=== PATIENT | female | born 1940 | race Caucasian/White ===

== ENCOUNTER 2020-07-03 22:28 | Inpatient (IN) | payer MEDICARE ==
[~2020-07-03] VITALS: Ht 165 cm; Wt 51.3 kg
--- NOTE | 2020-07-03 22:46 | ED Respiratory ---
General Stated Complaint: COVID +/LOW O2/WEAKNESS Source: patient History of Present Illness Date Seen by Provider: Jul 03, 2020 Time Seen by Provider: 22:43 Initial Comments PT ARRIVES VIA POV FROM HOME PT IS COVID-19 POSITIVE STATES ON Monday06/29/20, SHE BEGAN TO HAVE FATIGUE, SOME MILD NAUSEA AND VOMITED X 1, AND HAD A LITTLE DIARRHEA. ALSO LOST TASTE AND SMELL. HAD BODY ACHES ONE DAY. WAS TESTED ON MONDAY FOR COVID-19 WITH POSITIVE RESULT BACK ON MONDAY. JUST GOT A HOME O2 SAT MONITOR TODAY--O2 SAT WAS 94% EARLIER IN THE DAY, AND TONIGHT IT WAS 87%, SO CAME HERE. NO SHORTNESS OF BREATH AT ANY TIME NO COUGH AT ANY TIME C/O BEING WEAK NO CHEST PAIN NO ABDOMINAL PAIN NO SORE THROAT NO HEADACHE NO LONGER HAS NAUSEA OR DIARRHEA STATES SHE DID NOT EAT FOR 3-4 DAYS DUE TO NO APPETITE, BUT HAS BEEN DRINKING ALOT--STATES HER MOUTH FEELS VERY DRY STATES SHE IS URINATING A NORMAL AMOUNT AND NO URINARY SYMPTOMS MULTIPLE PEOPLE AT HER BUDDHIST HAVE TESTED POSITIVE, AND DAUGHTER TESTED POSITIVE LAST WEEK PT LIVES ALONE, BUT HAS BEEN AROUND MULTIPLE FAMILY MEMBERS PT HAS HISTORY OF HTN, AND TAKES A BLOOD PRESSURE MEDICATION AND BABY ASPIRIN, OTHERWISE DOES NOT TAKE ANY OTHER MEDICATIONS OR HAVE ANY OTHER MEDICAL PROBLEMS HAS NOT TAKEN HER MEDICATIONS TODAY--TAKES THEM IN THE EVENING. Allergies and Home Medications Allergies Coded Allergies: No Known Drug Allergies (Unverified , 07/03/20) Patient Home Medication List Home Medication List Reviewed: Yes Review of Systems Review of Systems Constitutional: see HPI; No chills, No diaphoresis, No fever; malaise, weakness EENTM: see HPI; No nose congestion, No throat pain Respiratory: see HPI; No cough, No dyspnea on exertion, No short of breath, No wheezing Cardiovascular: no symptoms reported; No chest pain, No edema, No palpitations, No syncope Gastrointestinal: see HPI; No abdominal pain; diarrhea, loss of appetite, nausea, vomiting Genitourinary: no symptoms reported Musculoskeletal: see HPI Skin: no symptoms reported Psychiatric/Neurological: No Symptoms Reported; Denies Headache Hematologic/Lymphatic: No Symptoms Reported Immunological/Allergic: no symptoms reported Past Epgyqke-Xnpktc-Lqfwmi Hx Past Med/Social Hx: Reviewed and Corrections made Patient Social History Alcohol Use: Denies Use Recreational Drug Use: No Smoking Status: Never a Smoker Recent Foreign Travel: No Contact w/Someone Who Travel: No Past Medical History Surgeries: No Respiratory: No Cardiac: Yes Hypertension 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 oz. kg; BMI Method: General Appearance: WD/WN, no apparent distress, thin, other (DOES NOT APPEAR ILL OR TO BE IN ANY DISCOMFORT OR DISTRESS. ) HEENT: PERRL/EOMI, normal ENT inspection, TMs normal, pharynx normal Neck: non-tender, full range of motion, supple Respiratory: normal breath sounds, no respiratory distress, no accessory muscle use Cardiovascular: normal peripheral pulses, regular rate, rhythm, no edema, no JVD, no murmur Gastrointestinal: non tender, soft Extremities: normal inspection, normal capillary refill Neurologic/Psychiatric: auto wheel alignment specialist II-XII nml as tested, no motor/sensory deficits, alert, normal mood/affect, oriented x 3 Skin: normal color, warm/dry KYPOHSIS Focused Exam Lactate Level 07/03/20 22:55: Lactic Acid Level 1.33 Lactic Acid Level Laboratory Tests Test 07/03/20 22:55 Lactic Acid Level 1.33 MMOL/L (0.50-2.00) Progress/Results/Core Measures Suspected Sepsis SIRS Temperature: Pulse: Respiratory Rate: Laboratory Tests 07/03/20 22:55: White Blood Count 5.1 Blood Pressure / Mean: 07/03/20 22:55: Lactic Acid Level 1.33 Laboratory Tests 07/03/20 22:55: Creatinine 0.69, INR Comment 0.9, Platelet Count 271, Total Bilirubin 0.4 Results/Orders Lab Results Laboratory Tests Test 07/03/20 22:50 07/03/20 22:55 Range/Units Urine Color YELLOW Urine Clarity CLEAR Urine pH 7.0 5-9 Urine Specific [place] 1.015 L 1.016-1.022 Urine Protein NEGATIVE NEGATIVE Urine Glucose (UA) NEGATIVE NEGATIVE Urine Ketones TRACE H NEGATIVE Urine Nitrite NEGATIVE NEGATIVE Urine Bilirubin NEGATIVE NEGATIVE Urine Urobilinogen 0.2 < = 1.0 MG/DL Urine Leukocyte Esterase 1+ H NEGATIVE Urine RBC (Auto) NEGATIVE NEGATIVE Urine RBC NONE /HPF Urine WBC 5-10 H /HPF Urine Squamous Epithelial Cells 5-10 /HPF Urine Crystals NONE /LPF Urine Bacteria FEW H /HPF Urine Casts NONE /LPF Urine Mucus NEGATIVE /LPF Urine Culture Indicated YES White Blood Count 5.1 4.3-11.0 10^3/uL Red Blood Count 4.25 3.80-5.11 10^6/uL Hemoglobin 12.8 11.5-16.0 g/dL Hematocrit 39 35-52 % Mean Corpuscular Volume 91 80-99 fL Mean Corpuscular Hemoglobin 30 25-34 pg Mean Corpuscular Hemoglobin Concent 33 32-36 g/dL Red Cell Distribution Width 13.0 10.0-14.5 % Platelet Count 271 130-400 10^3/uL Mean Platelet Volume 9.5 9.0-12.2 fL Immature Granulocyte % (Auto) 1 % Neutrophils (%) (Auto) 65 42-75 % Lymphocytes (%) (Auto) 25 12-44 % Monocytes (%) (Auto) 9 0-12 % Eosinophils (%) (Auto) 1 0-10 % Basophils (%) (Auto) 0 0-10 % Neutrophils # (Auto) 3.3 1.8-7.8 10^3/uL Lymphocytes # (Auto) 1.3 1.0-4.0 10^3/uL Monocytes # (Auto) 0.5 0.0-1.0 10^3/uL Eosinophils # (Auto) 0.0 0.0-0.3 10^3/uL Basophils # (Auto) 0.0 0.0-0.1 10^3/uL Immature Granulocyte # (Auto) 0.0 0.0-0.1 10^3/uL Erythrocyte Sedimentation Rate 24 0-30 MM/HR Prothrombin Time 12.4 12.2-14.7 SEC INR Comment 0.9 0.8-1.4 Activated Partial Thromboplast Time 29 24-35 SEC Sodium Level 138 135-145 MMOL/L Potassium Level 3.5 L 3.6-5.0 MMOL/L Chloride Level 100 98-107 MMOL/L Carbon Dioxide Level 26 21-32 MMOL/L Anion Gap 12 5-14 MMOL/L Blood Urea Nitrogen 11 7-18 MG/DL Creatinine 0.69 0.60-1.30 MG/DL Estimat Glomerular Filtration Rate > 60 BUN/Creatinine Ratio 16 Glucose Level 101 70-105 MG/DL Lactic Acid Level 1.33 0.50-2.00 MMOL/L Calcium Level 8.5 8.5-10.1 MG/DL Corrected Calcium 8.6 8.5-10.1 MG/DL Magnesium Level 1.8 1.6-2.4 MG/DL Total Bilirubin 0.4 0.1-1.0 MG/DL Aspartate Amino Transf (AST/SGOT) 25 5-34 U/L Alanine Aminotransferase (ALT/SGPT) 14 0-55 U/L Alkaline Phosphatase 73 40-136 U/L Total Creatine Kinase 52 29-168 U/L Creatine Kinase MB 1.1 <6.6 NG/ML Myoglobin 31.5 10.0-92.0 NG/ML Troponin I < 0.028 <0.028 NG/ML B-Type Natriuretic Peptide 15.2 <100.0 PG/ML Total Protein 6.7 6.4-8.2 GM/DL Albumin 3.9 3.2-4.5 GM/DL Procalcitonin 0.04 <0.10 NG/ML My Orders Orders - GEENA TAYLOR DO Ed Iv/Invasive Line Start (07/03/20:) Ekg Tracing (07/03/20:) O2 (07/03/20:) Monitor-Rhythm Ecg Trace Only (07/03/20:) Chest 1 View, Ap/Pa Only (07/03/20:) BNP (07/03/20:) Cbc With Automated Diff (07/03/20:) Comprehensive Metabolic Panel (07/03/20:) Creatine Kinase (07/03/20:) Creatine Kinase Mb (07/03/20:) Erythrocyte Sedimentation Rate (07/03/20:) Lactic Acid Analyzer (07/03/20:) Magnesium (07/03/20:) Procalcitonin (Pct) (07/03/20:) Protime With Inr (07/03/20:) Partial Thromboplastin Time (07/03/20:) Ua Culture If Indicated (07/03/20:) Blood Culture (10/16/20 22:31) Myoglobin Serum (07/03/20 22:31) Troponin I (07/03/20 22:31) Ed Iv/Invasive Line Start (07/03/20 22:31) Urine Culture (07/03/20 22:50) Ceftriaxone For Iv Use (Rocephin For I (07/03/20 23:30) Azithromycin Injection (Zithromax Inject (07/03/20 23:30) Ct Angio Chest W (07/03/20 23:33) Water (Sterile) For Injection (Sterile W (07/03/20 23:42) Ns (Ivpb) (Sodium Chloride 0.9%) (07/03/20 23:43) Ceftriaxone For Iv Use (Rocephin For I (07/03/20 23:43) Azithromycin Injection (Zithromax Inject (07/03/20 23:43) Medications Given in ED Current Medications Medications Dose Ordered Sig/Mushtaq Route Start Time Stop Time Status Last Admin Dose Admin Azithromycin 500 mg/Sodium Chloride 255 ml @ 250 mls/hr ONCE ONCE IV 07/03/20 23:30 07/04/20 00:31 DC 07/03/20 23:48 250 MLS/HR Ceftriaxone Sodium 1000 mg/ Sterile Water 10 ml @ 200 mls/hr ONCE ONCE IV 07/03/20 23:30 07/03/20 23:42 DC 07/03/20 23:48 200 MLS/HR Vital Signs/I&O 07/03/20 07/03/20 22:49 22:49 Temp 36.9 Pulse 84 Resp 18 B/P (MAP) 169/107 (127) Pulse Ox 96 96 O2 Delivery Nasal Cannula Nasal Cannula O2 Flow Rate 2.00 2.00 07/04/20 00:00 Intake Total 10 ml Balance 10 ml Capillary Refill : Progress Note : Progress Note O2 SAT 88% ON ROOM AIR ON ARRIVAL, UP TO 97-98% ON O2 AT 2L/NC NO COUGH OR DYSPNEA OR ANY RESPIRATORY SYMPTOMS OF ANY KIND NO FEVER NO GI SYMPTOMS UNEVENTFUL ER STAY ECG Initial ECG Impression Date: Jul 03, 2020 Initial ECG Impression Time: 23:01 Initial ECG Rate: 86 Initial ECG Rhythm: Normal Sinus (PVC) Initial ECG Comparisson: No Previous ECG Available Diagnostic Imaging Comments CXR--RIGHT SIDED INFILTRATE, PENDING RADIOLOGIST REVIEW CT CHEST ANGIOGRAM--NO P.E., PATCHY BILATERAL AIRSPACE GROUND-GLASS OPACITIES RUL, WEN, RML, CANNOT EXCLUDE PNEUMONIA, VIRAL PNEUMONIA. SMALL BILATERAL PLEURAL EFFUSIONS. MULTIPLE T-SPINE COMPRESSION FRACTURES-CHRONIC APPEARING. PER [facility] VIA FAX AT [phone] Reviewed: Reviewed by Me Departure Communication (Admissions) 39--ATTEMPTING TO CONTACT DR. JARAMILLO, HOSPITALIST COVERING COVID-19 PATIENTS, MESSAGE LEFT 44--SPOKE WITH DR. JARAMILLO, HOSPITALIST, ACCEPTS PT FOR ADMIT 49--SPOKE WITH DR. KOCH, PT'S [id number] AND HER PCP AND UPDATED HER ON PT'S CONDITION. Impression Primary Impression: Pneumonia due to COVID-19 virus Additional Impressions: UTI (urinary tract infection) Hypoxia Disposition: ADMITTED INPATIENT Condition: Stable Admissions Decision to Admit Reason: Admit from ER (General) Decision to Admit/Date: Jul 04, 2020 Time/Decision to Admit Time: 00:45 GEENA TAYLOR DO Jul 03, 2020 22:46
[2020-07-03 23:13] LABS: BASOPHILS % (AUTO) 0 % (0-10); EOSINOPHILS % (AUTO) 1 % (0-10); HEMATOCRIT 39 % (35-52); HEMOGLOBIN 12.8 g/dL (11.5-16.0); LYMPHOCYTES # (AUTO) 1.3 10^3/uL (1.0-4.0); LYMPHOCYTES % (AUTO) 25 % (12-44); MEAN CORPUSCULAR HEMOGLOBIN 30 pg (25-34); MEAN CORPUSCULAR HGB CONC 33 g/dL (32-36); MEAN CORPUSCULAR VOLUME 91 fL (80-99); MEAN PLATELET VOLUME 9.5 fL (9.0-12.2); MONOCYTES # (AUTO) 0.5 10^3/uL (0.0-1.0); MONOCYTES % (AUTO) 9 % (0-12); NEUTROPHILS # (AUTO) 3.3 10^3/uL (1.8-7.8); NEUTROPHILS % (AUTO) 65 % (42-75); PLATELET COUNT 271 10^3/uL (130-400); WHITE BLOOD COUNT 5.1 10^3/uL (4.3-11.0)
[2020-07-03] MEDS ORDERED: AMLO10TA7 PO (23:13)
[2020-07-03] MEDS ORDERED: ASPI-999 PO (23:13)
[2020-07-03 23:14] LABS: BILIRUBIN,URINE NEGATIVE (NEGATIVE); CLARITY,URINE CLEAR; COLOR,URINE YELLOW; GLUCOSE, URINE (UA) NEGATIVE (NEGATIVE); KETONES,URINE TRACE (NEGATIVE); LEUKOCYTE ESTERASE ,URINE 1+ (NEGATIVE); NITRITE,URINE NEGATIVE (NEGATIVE); PROTEIN,URINE NEGATIVE (NEGATIVE)
[2020-07-03 23:22] LABS: INR 0.9 (0.8-1.4); PROTHROMBIN TIME PATIENT 12.4 SEC (12.2-14.7)
[2020-07-03 23:23] LABS: BACTERIA,URINE FEW /HPF
[2020-07-03 23:24] LABS: ALBUMIN 3.9 GM/DL (3.2-4.5); CHLORIDE 100 MMOL/L (98-107); POTASSIUM 3.5 MMOL/L (3.6-5.0); SODIUM 138 MMOL/L (135-145)
[2020-07-03 23:25] LABS: CALCIUM 8.5 MG/DL (8.5-10.1)
[2020-07-03 23:26] LABS: GLUCOSE 101 MG/DL (70-105)
[2020-07-03 23:27] LABS: TOTAL PROTEIN 6.7 GM/DL (6.4-8.2)
[2020-07-03 23:28] LABS: BILIRUBIN,TOTAL 0.4 MG/DL (0.1-1.0); CARBON DIOXIDE 26 MMOL/L (21-32)
[2020-07-03 23:30] LABS: ALKALINE PHOSPHATASE 73 U/L (40-136); CREATININE SERUM 0.69 MG/DL (0.60-1.30); GFR ESTIMATED > 60
[2020-07-03] MEDS ORDERED: AZITHROMYCIN INJECTION 500 MG in NS (IVPB) 250 ML IV ONE (23:30)
[2020-07-03] MEDS ORDERED: cefTRIAXone FOR IV USE 1,000 MG in WATER (STERILE) FOR INJECTION 10 ML IV ONE (23:30)
[2020-07-03 23:31] LABS: BUN/CREATININE RATIO 16; ERYTHROCYTE SEDIMENTATION RATE 24 MM/HR (0-30)
[2020-07-03 23:33] LABS: ALANINE AMINOTRANSFERASE 14 U/L (0-55)
[2020-07-03 23:34] LABS: CREATINE KINASE 52 U/L (29-168); MAGNESIUM 1.8 MG/DL (1.6-2.4)
[2020-07-03 23:42] LABS: CREATINE KINASE MB 1.1 NG/ML (<6.6)
[2020-07-03] MEDS ORDERED: WATER (STERILE) FOR INJECTION 10 ML ONE (23:42)
[2020-07-03] MEDS ORDERED: NS (IVPB) 250 ML ONE (23:43)
[2020-07-03] MEDS ORDERED: cefTRIAXone 1,000 MG IV (ROCEPHIN) VIAL ONE (23:43)
[2020-07-03] MEDS ORDERED: AZITHROMYCIN INJECTION 500 MG/5 ML VIAL ONE (23:43)
--- NOTE | 2020-07-04 00:56 | NUR ---
TELEPHONE REPORT RECEIVED FROM ALBERTINA-GAGE LARRY- AT THIS TIME.
[2020-07-04] MEDS ORDERED: ENOXAPARIN 40 MG/0.4 ML (LOVENOX) SYR SC ONE (01:00)
[2020-07-04 01:25] VITALS: BP 146/83
--- NOTE | 2020-07-04 01:25 | NUR ---
RADHA KOCH admitted to room 426-1, with an admitting diagnosis of COVID, HYPOXIA AND UTI on 07/04/20 from ER via , accompanied by STAFF.RADHA KOCH introduced to surroundings, call light, bed controls, phone, TV, temperature control, lights, meal times, smoking policy, visitor policy, side rail policy, bathrooms and showers. Patient Rights given to patient in the handbook. RADHA KOCH verbalizes understanding that [facility] is not responsible for the loss or damage to any personal effects or valuables that are kept in the patients possession during their hospitalization. RADHA KOCH verbalizes understanding of Interdisciplinary Patient Education. Patient and/or family were informed about the Rapid Response Team and its purpose.
[2020-07-04] MEDS ORDERED: D5 1/2 NS W/KCL 20 MEQ/L 1,000 ML IV ONE (01:32)
[2020-07-04] MEDS ORDERED: ACETAMINOPHEN 500 MG TAB (TYLENOL) PO PRN (02:15)
[2020-07-04] MEDS ORDERED: D5 1/2 NS W/KCL 20 MEQ/L 1,000 ML IV SCH (02:15)
[2020-07-04] MEDS ORDERED: RT-ALBUTEROL INHALER HFA (VENTOLIN HFA) 18 GM IH PRN (02:45)
[2020-07-04 03:55] VITALS: BP 122/60
--- NOTE | 2020-07-04 06:39 | Diagnostic Imaging Report ---
PROCEDURE: CT angiography of the chest with contrast. TECHNIQUE: Multiple contiguous axial images were obtained through the chest after uneventful bolus administration of intravenous contrast. 3D reconstructed CTA MIP acquisitions were also performed. Auto Exposure Controls were utilized during the CT exam to meet ALARA standards for radiation dose reduction. Indication: Dyspnea with hypoxia. Comparison: Chest x-ray same day. Discussion: No pulmonary embolus identified. The thoracic aorta is normal in caliber and configuration. Normal heart size. No pericardial fluid. Trace pleural fluid is noted bilaterally. Shotty-appearing mediastinal adenopathy. Changes of chronic lung disease are noted. Patchy groundglass infiltrates are present bilaterally, right greater than left, likely pneumonia. Recommend clinical correlation for viral pneumonia. Degenerative disease noted within the spine with accentuated thoracic kyphosis and multiple chronic appearing compression deformities present. The visualized upper abdomen is unremarkable. Impression: 1. No pulmonary embolus identified. 2. Changes of chronic lung disease with superimposed groundglass infiltrates bilaterally, right greater than left, likely pneumonia. Recommend clinical correlation for viral pneumonia. 3. Agree with preliminary report. Dictated by: Dictated on workstation # [id number]
[2020-07-04 06:58] LABS: BASOPHILS % (AUTO) 0 % (0-10); EOSINOPHILS % (AUTO) 0 % (0-10); HEMATOCRIT 37 % (35-52); HEMOGLOBIN 12.2 g/dL (11.5-16.0); LYMPHOCYTES # (AUTO) 0.6 10^3/uL (1.0-4.0); LYMPHOCYTES % (AUTO) 20 % (12-44); MEAN CORPUSCULAR HEMOGLOBIN 30 pg (25-34); MEAN CORPUSCULAR HGB CONC 33 g/dL (32-36); MEAN CORPUSCULAR VOLUME 90 fL (80-99); MEAN PLATELET VOLUME 9.4 fL (9.0-12.2); MONOCYTES # (AUTO) 0.1 10^3/uL (0.0-1.0); MONOCYTES % (AUTO) 4 % (0-12); NEUTROPHILS # (AUTO) 2.1 10^3/uL (1.8-7.8); NEUTROPHILS % (AUTO) 75 % (42-75); PLATELET COUNT 254 10^3/uL (130-400); WHITE BLOOD COUNT 2.8 10^3/uL (4.3-11.0)
[2020-07-04 07:03] LABS: ALBUMIN 3.5 GM/DL (3.2-4.5); CHLORIDE 104 MMOL/L (98-107); POTASSIUM 4.1 MMOL/L (3.6-5.0); SODIUM 139 MMOL/L (135-145)
[2020-07-04 07:05] LABS: CALCIUM 8.3 MG/DL (8.5-10.1)
[2020-07-04 07:06] LABS: GLUCOSE 198 MG/DL (70-105)
[2020-07-04 07:07] LABS: CARBON DIOXIDE 25 MMOL/L (21-32)
[2020-07-04 07:08] LABS: BILIRUBIN,TOTAL 0.3 MG/DL (0.1-1.0)
[2020-07-04 07:09] LABS: ALKALINE PHOSPHATASE 67 U/L (40-136); CREATININE SERUM 0.68 MG/DL (0.60-1.30); GFR ESTIMATED > 60
[2020-07-04 07:10] LABS: BUN/CREATININE RATIO 12
[2020-07-04 07:12] LABS: ALANINE AMINOTRANSFERASE 15 U/L (0-55)
[2020-07-04 08:00] VITALS: BP 131/73
--- NOTE | 2020-07-04 08:13 | Diagnostic Imaging Report ---
EXAMINATION: Chest radiograph, portable AP view. DATE: 07/03/2020 11:28 PM hours. INDICATION: 79-year-old female, shortness of breath. Low oxygen saturations. The patient is positive for COVID 19. COMPARISON: None. FINDINGS: There are multifocal patchy areas of airspace consolidation in both lungs. The heart is not grossly enlarged. There is no large pericardial effusion. IMPRESSION: 1. Multifocal bilateral alveolar consolidation. Differential diagnostic considerations would include atypical infectious etiology including possibility of COVID 19 and pneumonitis. There also may be components of atelectasis present. Dictated by: Dictated on workstation # [id number]
[2020-07-04] MEDS ORDERED: dexAMETHasone 6 MG TAB (DECADRON) ONE (08:42)
--- NOTE | 2020-07-04 09:30 | NUR ---
[id number]---PT VISITING WITH DR JARAMILLO--------- [id number]--PT RESTING COMFORTABLY AND FACE TIMING FAMILY STATES NO NEEDS RIGHT NOW
[2020-07-04] MEDS: amLODIPine 5 MG (NORVASC) TAB PO SCH (10:46)
[2020-07-04] MEDS: PANTOPRAZOLE 40 MG (PROTONIX) TAB PO SCH (10:47)
[2020-07-04] MEDS: inSUlin ASPART (NovoLOG) 1 UNIT/0.01 ML (CHARGE PER UNIT) SC SCH ×3 (11:00→21:16)
[2020-07-04] MEDS ORDERED: REMDESIVIR INJ (NON-FORMULARY) 200 MG in NS (IVPB) 210 ML IV ONE (11:30)
--- NOTE | 2020-07-04 11:33 | History & Physical-Hospitalist ---
History of Present Illness HPI/Chief Complaint Ebony Kim is an 79-year-old female with past medical history of hypertension who presented with hypoxia. She had been diagnosed with COVID-19 on Monday. She has had symptoms for about a week. She denies having any shortness of breath at this time. She is not having a fever or cough. She hasn't had a decreased taste and smell. She denies any chest pain. She denies any abdominal pain. She denies any nausea or vomiting. She denies any diarrhea. Source: patient, family Exam Limitations: no limitations Date Seen 07/04/20 Time Seen by a Provider: 09:30 Attending Physician Tammi Jaramillo MD PCP Referring Physician Date of Admission Jul 04, 2020 at 00:45 Home Medications & Allergies Home Medications Reviewed patient Home Medication Reconciliation performed by pharmacy medication reconciliations relay technician and/or nursing. Patients Allergies have been reviewed. Allergies Allergies Coded Allergies No Known Drug Allergies (Chlcmrszeo42/16/20) Past Bzaedhh-Fdocsh-Uiawfw Hx Past Med/Social Hx: Reviewed Nursing Past Med/Soc Hx Patient Social History Alcohol Use: Denies Use Recreational Drug Use: No Smoking Status: Never a Smoker 2nd Hand Smoke Exposure: No Recent Foreign Travel: No Contact w/other who traveled: No Recent Hopitalizations: No Recent Infectious Disease Expo: No Immunizations Up To Date Tetanus Booster (TDap): Unknown Date of Pneumonia Vaccine: Jun 18, 2015 Past Medical History Cardiac: Hypertension : No Menopausal History of Blood Disorders: No Review of Systems Constitutional: malaise EENTM: no symptoms reported Respiratory: short of breath Cardiovascular: no symptoms reported Gastrointestinal: no symptoms reported Genitourinary: no symptoms reported Musculoskeletal: no symptoms reported Skin: no symptoms reported Psychiatric/Neurological: No Symptoms Reported Physical Exam Physical Exam Vital Signs Vital Signs - First Documented Capillary Refill : Less Than 3 Seconds Height, Weight, BMI Height: '" Weight: lbs. oz. kg; 18.18 BMI Method: General Appearance: No Apparent Distress, Thin HEENT: PERRL/EOMI, Pharynx Normal Neck: Normal Inspection, Supple Respiratory: Lungs Clear, Normal Breath Sounds, No Respiratory Distress Cardiovascular: Regular Rate, Rhythm, No Edema, No Murmur Gastrointestinal: Normal Bowel Sounds, Non Tender, Soft Extremity: Normal Inspection, Non Tender, No Pedal Edema Neurologic/Psychiatric: Alert, Oriented x3, No Motor/Sensory Deficits, Normal Mood/Affect Skin: Normal Color, Warm/Dry Results Results/Procedures Labs Laboratory Tests 07/03/20 22:55 07/04/20 06:25 Patient resulted labs reviewed. Imaging: Reviewed Imaging Report Assessment/Plan Admission Diagnosis Acute respiratory failure due to COVID-19 Admission Status: Inpatient Order (span 2 midnights) Reason for Inpatient Admission: respiratory failure requiring supplemental oxygen COVID-19 requiring medical treatment Assessment and Plan Acute respiratory failure due to COVID-19 Advanced age Leukopenia Hyperglycemia Essential HTN BMI less than 19 in adult Tested positive for COVID-[address] showed no PE, bilateral groundglass opacities Procalcitonin negative, repeat Antibiotics not indicated Started on Decadron Begin Remdesivir, discussed risks/benefits/EUA use and patient/family agrees Convalescent plasma ordered, discussed risks/benefits/EUA use and patient/family agrees Check HgbA1C, sliding scale insulin Continue Norvasc Ensure with meals DVT/GI Prophylaxis: Lovenox/PPI Diagnosis/Problems Diagnosis/Problems (1) Acute respiratory failure due to COVID-19 (2) Advanced age (3) HTN (hypertension) (4) Hyperglycemia (5) Leukopenia (6) Body mass index (BMI) less than 19 in adult Clinical Quality Measures DVT/VTE Risk/Contraindication: Risk Factor Score Per Nursin RFS Level Per Nursing on Admit: 3=High TAMMI JARAMILLO MD Jul 04, 2020 11:33
[2020-07-04 12:00] VITALS: BP 138/76
--- NOTE | 2020-07-04 13:55 | NUR ---
1355---REMDESIVIR INFUSION COMPLETE-------REMOVED DOWN TO HEPLOCK --HEPLOCK FLUSHED AND PATENT NO CHANGE PT CONDITION UP WATCHING TV AND VISITING ON PHONE--
[2020-07-04 16:24] VITALS: BP 141/70
[2020-07-04 20:55] VITALS: BP 136/78
[2020-07-04] MEDS ORDERED: cefTRIAXone 1,000 MG/SWFI 10 ML IV PUSH IV SCH ×2 (21:00)
[2020-07-04] MEDS ORDERED: AZITHROMYCIN 250 MG TAB (ZITHROMAX) PO SCH (21:00)
[2020-07-04] MEDS: ENOXAPARIN 30 MG/0.3 ML (LOVENOX) SYR SC SCH (21:16)
[2020-07-05 00:31] VITALS: BP 145/80
[2020-07-05 03:45] VITALS: BP 126/68
[2020-07-05 05:47] LABS: BASOPHILS % (AUTO) 0 % (0-10); EOSINOPHILS % (AUTO) 0 % (0-10); HEMATOCRIT 36 % (35-52); HEMOGLOBIN 11.8 g/dL (11.5-16.0); LYMPHOCYTES # (AUTO) 0.8 10^3/uL (1.0-4.0); LYMPHOCYTES % (AUTO) 21 % (12-44); MEAN CORPUSCULAR HEMOGLOBIN 30 pg (25-34); MEAN CORPUSCULAR HGB CONC 33 g/dL (32-36); MEAN CORPUSCULAR VOLUME 91 fL (80-99); MEAN PLATELET VOLUME 9.3 fL (9.0-12.2); MONOCYTES # (AUTO) 0.4 10^3/uL (0.0-1.0); MONOCYTES % (AUTO) 11 % (0-12); NEUTROPHILS # (AUTO) 2.5 10^3/uL (1.8-7.8); NEUTROPHILS % (AUTO) 68 % (42-75); PLATELET COUNT 300 10^3/uL (130-400); WHITE BLOOD COUNT 3.7 10^3/uL (4.3-11.0)
[2020-07-05 06:05] LABS: ALANINE AMINOTRANSFERASE 19 U/L (0-55); ALBUMIN 3.4 GM/DL (3.2-4.5); ALKALINE PHOSPHATASE 66 U/L (40-136); BILIRUBIN,TOTAL 0.4 MG/DL (0.1-1.0); BUN/CREATININE RATIO 17; CALCIUM 8.6 MG/DL (8.5-10.1); CARBON DIOXIDE 25 MMOL/L (21-32); CHLORIDE 106 MMOL/L (98-107); CREATININE SERUM 0.65 MG/DL (0.60-1.30); GFR ESTIMATED > 60; GLUCOSE 130 MG/DL (70-105); POTASSIUM 4.1 MMOL/L (3.6-5.0); SODIUM 141 MMOL/L (135-145); TOTAL PROTEIN 6.1 GM/DL (6.4-8.2)
[2020-07-05] MEDS: dexAMETHasone 6 MG TAB (DECADRON) PO SCH (06:13)
[2020-07-05] MEDS: inSUlin ASPART (NovoLOG) 1 UNIT/0.01 ML (CHARGE PER UNIT) SC SCH ×4 (06:23→20:15)
[2020-07-05 08:00] VITALS: BP 153/82
[2020-07-05] MEDS: amLODIPine 5 MG (NORVASC) TAB PO SCH (08:09)
[2020-07-05] MEDS: PANTOPRAZOLE 40 MG (PROTONIX) TAB PO SCH (08:09)
[2020-07-05] MEDS ORDERED: REMDESIVIR INJ (NON-FORMULARY) 100 MG in NS (IVPB) 230 ML IV SCH (11:30)
[2020-07-05 12:00] VITALS: BP 136/72
--- NOTE | 2020-07-05 12:04 | Progress Note - Hospitalist ---
Subjective HPI/CC On Admission Date Seen by Provider: Jul 05, 2020 Time Seen by Provider: 11:30 Ebony Kim is an 79-year-old female with past medical history of hypertension who presented with hypoxia. She had been diagnosed with COVID-19 on Monday. She has had symptoms for about a week. She denies having any shortness of breath at this time. She is not having a fever or cough. She hasn't had a decreased taste and smell. She denies any chest pain. She denies any abdominal pain. She denies any nausea or vomiting. She denies any diarrhea. Subjective/Events-last exam She is feeling good. She asks about when she can leave. She has been up and moving around. She denies shortness of breath. Focused Exam Lactate Level 07/03/20 22:55: Lactic Acid Level 1.33 Objective Exam Vital Signs Vital Signs Date Time Temp Pulse Resp B/P (MAP) Pulse Ox O2 Delivery O2 Flow Rate FiO2 07/05/20 08:00 95 Nasal Cannula 2.00 07/05/20 08:00 35.4 76 16 153/82 (105) Capillary Refill : NONELess Than 3 Seconds General Appearance: No Apparent Distress, Thin Respiratory: Lungs Clear, Normal Breath Sounds, No Respiratory Distress Cardiovascular: Regular Rate, Rhythm, No Edema, No Murmur Gastrointestinal: Normal Bowel Sounds, Non Tender, Soft Extremity: Normal Inspection, Non Tender, No Pedal Edema Neurologic/Psychiatric: Alert, Oriented x3, No Motor/Sensory Deficits, Normal Mood/Affect Skin: Normal Color, Warm/Dry Results/Procedures Lab Laboratory Tests 07/05/20 05:30 Patient resulted labs reviewed. Imaging: Reviewed Imaging Report Assessment/Plan Assessment and Plan Assess & Plan/Chief Complaint Acute respiratory failure due to COVID-19 Advanced age Leukopenia Hyperglycemia Essential HTN BMI less than 20 Tested positive for COVID-19 on Monday Continue Decadron Remdesivir day 2/5 Convalescent plasma ordered Continue supplemental oxygen, wean as able WBC improving HgbA1C pending, sliding scale insulin Continue Norvasc Ensure with meals DVT/GI Prophylaxis: Lovenox/PPI Diagnosis/Problems Diagnosis/Problems (1) Acute respiratory failure due to COVID-19 Status: Acute (2) Advanced age Status: Chronic (3) HTN (hypertension) Status: Chronic Qualifiers: Hypertension type: essential hypertension Qualified Codes: I10 - Essential (primary) hypertension (4) Hyperglycemia Status: Acute (5) Leukopenia Status: Acute (6) Body mass index (BMI) less than 20 Status: Acute Clinical Quality Measures DVT/VTE Risk/Contraindication: Risk Factor Score Per Nursin RFS Level Per Nursing on Admit: 3=High SHAWN JARAMILLO MD Jul 05, 2020 12:03
[2020-07-05] MEDS: REMDESIVIR INJ (NON-FORMULARY) 100 MG in NS (IVPB) 230 ML IV SCH (14:44)
[2020-07-05 15:51] VITALS: BP 127/78
[2020-07-05 20:08] VITALS: BP 119/72
[2020-07-05] MEDS: ENOXAPARIN 30 MG/0.3 ML (LOVENOX) SYR SC SCH (20:34)
[2020-07-06] VITALS (12 sets, daily range): BP systolic 122–146; BP diastolic 66–87
[2020-07-06 04:37] LABS: BASOPHILS % (AUTO) 0 % (0-10); EOSINOPHILS % (AUTO) 0 % (0-10); HEMATOCRIT 35 % (35-52); HEMOGLOBIN 11.5 g/dL (11.5-16.0); LYMPHOCYTES # (AUTO) 0.9 10^3/uL (1.0-4.0); LYMPHOCYTES % (AUTO) 15 % (12-44); MEAN CORPUSCULAR HEMOGLOBIN 30 pg (25-34); MEAN CORPUSCULAR HGB CONC 33 g/dL (32-36); MEAN CORPUSCULAR VOLUME 92 fL (80-99); MEAN PLATELET VOLUME 9.4 fL (9.0-12.2); MONOCYTES # (AUTO) 0.4 10^3/uL (0.0-1.0); MONOCYTES % (AUTO) 7 % (0-12); NEUTROPHILS # (AUTO) 4.5 10^3/uL (1.8-7.8); NEUTROPHILS % (AUTO) 78 % (42-75); PLATELET COUNT 347 10^3/uL (130-400); WHITE BLOOD COUNT 5.9 10^3/uL (4.3-11.0)
[2020-07-06 04:48] LABS: ALBUMIN 3.5 GM/DL (3.2-4.5); CHLORIDE 104 MMOL/L (98-107); POTASSIUM 4.1 MMOL/L (3.6-5.0); SODIUM 141 MMOL/L (135-145)
[2020-07-06 04:50] LABS: CALCIUM 8.5 MG/DL (8.5-10.1)
[2020-07-06 04:51] LABS: GLUCOSE 111 MG/DL (70-105)
[2020-07-06 04:52] LABS: CARBON DIOXIDE 26 MMOL/L (21-32)
[2020-07-06] MEDS: inSUlin ASPART (NovoLOG) 1 UNIT/0.01 ML (CHARGE PER UNIT) SC SCH ×4 (04:52→20:24)
[2020-07-06 04:53] LABS: BILIRUBIN,TOTAL 0.3 MG/DL (0.1-1.0)
[2020-07-06 04:54] LABS: ALKALINE PHOSPHATASE 63 U/L (40-136); CREATININE SERUM 0.68 MG/DL (0.60-1.30); GFR ESTIMATED > 60
[2020-07-06 04:55] LABS: BUN/CREATININE RATIO 28
[2020-07-06 04:57] LABS: ALANINE AMINOTRANSFERASE 19 U/L (0-55)
[2020-07-06] MEDS: dexAMETHasone 6 MG TAB (DECADRON) PO SCH (05:59)
[2020-07-06] MEDS: PANTOPRAZOLE 40 MG (PROTONIX) TAB PO SCH (08:15)
[2020-07-06] MEDS: amLODIPine 5 MG (NORVASC) TAB PO SCH (08:15)
--- NOTE | 2020-07-06 09:40 | Progress Note - Hospitalist ---
Subjective HPI/CC On Admission Date Seen by Provider: Jul 06, 2020 Time Seen by Provider: 09:34 Ebony Kim is an 79-year-old female with past medical history of hypertension who presented with hypoxia. She had been diagnosed with COVID-19 on Monday. She has had symptoms for about a week. She denies having any shortness of breath at this time. She is not having a fever or cough. She hasn't had a decreased taste and smell. She denies any chest pain. She denies any abdominal pain. She denies any nausea or vomiting. She denies any diarrhea. Subjective/Events-last exam Pt reports doing very well. No complaints. Requesting to go home but knows she is not yet ready. Focused Exam Lactate Level 07/03/20 22:55: Lactic Acid Level 1.33 Objective Exam Vital Signs Vital Signs Date Time Temp Pulse Resp B/P (MAP) Pulse Ox O2 Delivery O2 Flow Rate FiO2 07/06/20 08:00 35.6 68 18 143/87 (105) 94 Nasal Cannula 2.00 Capillary Refill : NONELess Than 3 Seconds General Appearance: No Apparent Distress, WD/WN Respiratory: Lungs Clear, No Respiratory Distress Cardiovascular: Regular Rate, Rhythm, No Murmur Neurologic/Psychiatric: Alert, Oriented x3, Normal Mood/Affect Results/Procedures Lab Laboratory Tests 07/06/20 04:23 Patient resulted labs reviewed. Imaging: Reviewed Imaging Report Assessment/Plan Assessment and Plan Assess & Plan/Chief Complaint Acute respiratory failure due to COVID-19 Advanced age Leukopenia Hyperglycemia Essential HTN BMI less than 20 Continue Decadron Remdesivir day 3/5 Convalescent plasma hopeful to be given today Continue supplemental oxygen, wean as able HgbA1C pending still, sliding scale insulin Continue Norvasc Ensure with meals If doing very well could maybe DC tomorrow but likely Monday DVT/GI Prophylaxis: Lovenox/PPI Clinical Quality Measures DVT/VTE Risk/Contraindication: Risk Factor Score Per Nursin RFS Level Per Nursing on Admit: 3=High MILTON BOB MD Jul 06, 2020 09:40
[2020-07-06] MEDS ORDERED: NS IV 500 ML 500 ML ONE (09:49)
--- NOTE | 2020-07-06 11:01 | NUR ---
SPOKE WITH THE PT ( I CALLED HER ROOM PHONE) AND WENT THRU THE EXT MED HISTORY TO COMPLETE THE MED REC ACCORDING TO THE PT SHE TAKES HER 2 MEDS (1 RX AND 1 OTC) @ [facility] OTC MEDS: ASPIRIN 81
[2020-07-06] MEDS: REMDESIVIR INJ (NON-FORMULARY) 100 MG in NS (IVPB) 230 ML IV SCH (14:56)
[2020-07-06] MEDS ORDERED: ENOXAPARIN 40 MG/0.4 ML (LOVENOX) SYR SC SCH (21:00)
[2020-07-07 03:24] VITALS: BP 114/57
[2020-07-07 05:00] LABS: BASOPHILS % (AUTO) 0 % (0-10); EOSINOPHILS % (AUTO) 0 % (0-10); HEMATOCRIT 35 % (35-52); HEMOGLOBIN 11.5 g/dL (11.5-16.0); LYMPHOCYTES # (AUTO) 1.1 10^3/uL (1.0-4.0); LYMPHOCYTES % (AUTO) 16 % (12-44); MEAN CORPUSCULAR HEMOGLOBIN 30 pg (25-34); MEAN CORPUSCULAR HGB CONC 33 g/dL (32-36); MEAN CORPUSCULAR VOLUME 91 fL (80-99); MEAN PLATELET VOLUME 9.8 fL (9.0-12.2); MONOCYTES # (AUTO) 0.6 10^3/uL (0.0-1.0); MONOCYTES % (AUTO) 8 % (0-12); NEUTROPHILS # (AUTO) 5.1 10^3/uL (1.8-7.8); NEUTROPHILS % (AUTO) 75 % (42-75); PLATELET COUNT 389 10^3/uL (130-400); WHITE BLOOD COUNT 6.8 10^3/uL (4.3-11.0)
[2020-07-07 05:20] LABS: ALBUMIN 3.4 GM/DL (3.2-4.5); CHLORIDE 105 MMOL/L (98-107); POTASSIUM 3.8 MMOL/L (3.6-5.0); SODIUM 140 MMOL/L (135-145)
[2020-07-07 05:21] LABS: CALCIUM 8.4 MG/DL (8.5-10.1)
[2020-07-07 05:22] LABS: GLUCOSE 103 MG/DL (70-105); TOTAL PROTEIN 5.8 GM/DL (6.4-8.2)
[2020-07-07 05:23] LABS: CARBON DIOXIDE 25 MMOL/L (21-32)
[2020-07-07] MEDS: inSUlin ASPART (NovoLOG) 1 UNIT/0.01 ML (CHARGE PER UNIT) SC SCH ×3 (05:23→16:15)
[2020-07-07 05:24] LABS: BILIRUBIN,TOTAL 0.4 MG/DL (0.1-1.0)
[2020-07-07 05:25] LABS: ALKALINE PHOSPHATASE 61 U/L (40-136)
[2020-07-07 05:26] LABS: GFR ESTIMATED > 60
[2020-07-07 05:27] LABS: BUN/CREATININE RATIO 30
[2020-07-07 05:29] LABS: ALANINE AMINOTRANSFERASE 22 U/L (0-55)
[2020-07-07] MEDS: dexAMETHasone 6 MG TAB (DECADRON) PO SCH (05:50)
--- NOTE | 2020-07-07 07:34 | Physician Query Clarification ---
PQ-Conflicting Diagnosis Admission/Discharge Admission Date: Jul 04, 2020 at 00:45 Discharge Date: Dr. Bright, The medical record reflects the following clinical scenario: History/Risk Factors: COVID 19 Positive Acute respiratory failure due to COVID 19 Clinical Findings:CT Angiography of chest with contrast impression: No pulmonary embolus identified. Changes of chronic lung disease with superimposed groundglass infiltrates bilaterally, right greater than left, likely pneumonia. Recommend clinical correlation for viral pneumonia. Treatment: IV Azithromycin 500mg, IV Rocephin, Decadron injection. Question: Do you agree with the impression of the Pneumonia due to COVID [address] Carrington? Please document a response in Progress Note or Discharge Summary. 1. Yes 2. No 3. Other, with explanation of clinical findings 4. Clinically undetermined, no explanation for clinical findings. PHYSICIAN RESPONSE Do you agree w/Consulting Dx?: Yes Please remember a lack of response to the above will prompt a phone page by [facility]/Coding staff. In responding to this query, please exercise your independent professional judgment. The purpose of this communication is to more accurately reflect the complexity of your patients condition. The fact that a question is asked does not imply that any particular answer is desired or expected. Thank you for your timely response to this clarification. Requestors name: Rosa Ivey [facility] Phone # ext [phone] or [phone] THIS PHYSICIAN QUERY FORM IS A PERMANENT PART OF THE MEDICAL RECORD ROSA IVEY Jul 07, 2020 07:34 MILTON BRIGHT MD Jul 07, 2020 14:07
--- NOTE | 2020-07-07 07:42 | Physician Query Clarification ---
PQ-Conflicting Diagnosis Admission/Discharge Admission Date: Jul 04, 2020 at 00:45 Discharge Date: Dr. Bright, The medical record reflects the following clinical scenario: History/Risk Factors: COVID 19 positive Clinical Findings:UA findings: Urine Specific [place] 1.015, Urine Ketones Trace, Urine Leukocyte Esterase 1+, Urine WBC 5-10, Urine Bacteria-few. Urine culture: Escherichia coli 30,000 CFU/ML. Treatment:IV Azithromycin 500mg, IV Rocephin Question: Do you agree with the impression of the UTI per Dr. Carrington? If so, please indicate organism if known. Please document a response in Progress Note or Discharge Summary. 1. Yes 2. No 3. Other, with explanation of clinical findings 4. Clinically undetermined, no explanation for clinical findings. PHYSICIAN RESPONSE Do you agree w/Consulting Dx?: No Please remember a lack of response to the above will prompt a phone page by [facility]/Coding staff. In responding to this query, please exercise your independent professional judgment. The purpose of this communication is to more accurately reflect the complexity of your patients condition. The fact that a question is asked does not imply that any particular answer is desired or expected. Thank you for your timely response to this clarification. Requestors name: Rosa Ivey [facility] Phone # ext [phone] or [phone] THIS PHYSICIAN QUERY FORM IS A PERMANENT PART OF THE MEDICAL RECORD ROSA IVEY Jul 07, 2020 07:42 MILTON BRIGHT MD Jul 07, 2020 14:00
[2020-07-07 08:00] VITALS: BP 155/83
--- NOTE | 2020-07-07 08:04 | Physician Query Clarification ---
PQ-Further Specificity Admission/Discharge Admission Date: Jul 04, 2020 at 00:45 Discharge Date: The medical record reflects the following clinical scenario: History/Risk Factors: BMI less than 20 Advanced age Clinical Findings: COVID 19 positive Treatment: Ensure with meals Question: Can you further specify diagnosis or etiology of BMI of 18.8 per the clinical indicators above? Please document a response in the Progress Notes or Discharge Summary. 1. Malnutrition- mild, moderate or severe.Please specify. 2. Underweight. 3. Other, with explanation of the clinical findings. 4. Clinically undetermined, no explanation for the clinical findings. PHYSICIAN RESPONSE Can you specify per above: 2 Please remember a lack of response to the above will prompt a phone page by CDI/Coding staff. In responding to this query, please exercise your independent professional judgment. The purpose of this communication is to more accurately reflect the complexity of your patients condition. The fact that a question is asked does not imply that any particular answer is desired or expected. Thank you for your timely response to this clarification. Requestors name: Rosa Ivey [facility] Phone # ext [phone] or [phone] THIS PHYSICIAN QUERY FORM IS A PERMANENT PART OF THE MEDICAL RECORD ROSA IVEY Jul 07, 2020 08:04 MILTON BOB MD Jul 07, 2020 13:59
[2020-07-07] MEDS: PANTOPRAZOLE 40 MG (PROTONIX) TAB PO SCH (08:30)
[2020-07-07] MEDS: amLODIPine 5 MG (NORVASC) TAB PO SCH (08:31)
[2020-07-07] MEDS ORDERED: DEXA6TAB PO (09:23)
--- NOTE | 2020-07-07 09:29 | Discharge Inst-Simple/Standard ---
Discharge Inst-Standard Discharge Medications New, Converted or Re-Newed RX: Transmitted to Pharmacy Patient Instructions/Follow Up Plan of Care/Instructions/FU: Please continue to take your medications as written. Please follow up with your primary care provider to follow up this hospital stay. Activity as Tolerated: Yes Discharge Diet: Cardiac Diet Return to The Hospital For: Chest pain, shortness of breath, fever, confusion, if you feel you are getting worse. MILTON BOB MD Jul 07, 2020 09:29
--- NOTE | 2020-07-07 09:30 | Discharge Summary ---
Diagnosis/Chief Complaint Date of Admission Jul 04, 2020 at 00:45 Date of Discharge Discharge Date: Jul 07, 2020 Admission Diagnosis Acute respiratory failure due to COVID-19 Primary Care Discharge Diagnosis (1) Acute respiratory failure due to COVID-19 Status: Acute (2) Advanced age Status: Chronic (3) HTN (hypertension) Status: Chronic (4) Hyperglycemia Status: Acute (5) Leukopenia Status: Acute (6) Body mass index (BMI) less than 20 Status: Acute Discharge Summary Discharge Physical Exam Allergies: Coded Allergies: No Known Drug Allergies (Unverified , 07/03/20) Vitals & I&Os Vital Signs Date Time Temp Pulse Resp B/P (MAP) Pulse Ox O2 Delivery O2 Flow Rate FiO2 07/07/20 13:16 92 87 07/07/20 12:00 36.3 20 139/81 (100) Nasal Cannula 1.00 07/06/20 13:54 24 General Appearance: No Apparent Distress, WD/WN Respiratory: Lungs Clear, No Respiratory Distress Cardiovascular: Regular Rate, Rhythm, No Murmur Neurologic/Psychiatric: Alert, Oriented x3 Hospital Course Pt was admitted due to acute respiratory failure from COVID19. She was treated with supplemental oxygen, remdesivir, decadron, and convalescent plasma and did well. She was titrated down on her oxygen and was off it completely at rest upon discharge. She did have an exertional need and this was arranged prior to DC. She requested discharge home after completing 4/5 doses of Remdesivir as she was feeling well. I discussed this with her family ( Anjelica Kim, daughter in law) who was agreeable with plan to discharge home. She was discharged in stable and improved condition. Labs (last 24 hrs) Microbiology 07/03/20 Blood Culture - Final, Complete No growth 07/03/20 Urine Culture - Final, Complete Escherichia coli Patient resulted labs reviewed. Pending Labs Imaging: Reviewed Imaging Report Discussion & Recommendations Discharge Planning: >30 minutes discharge planning Discharge Home Medications: Active Scripts Active Dexamethasone 6 Mg Tablet 6 Mg PO DAILY@0700 Reported Aspirin 81 Mg Tab.chew 81 Mg PO HS Amlodipine Besylate 10 Mg Tablet 10 Mg PO HS Instructions to patient/family Please see electronic discharge instructions given to patient. Clinical Quality Measures DVT/VTE Risk/Contraindication: Risk Factor Score Per Nursin RFS Level Per Nursing on Admit: 3=High Problem Qualifiers (1) HTN (hypertension): Hypertension type: essential hypertension Qualified Codes: I10 - Essential (primary) hypertension MILTON BOB MD Jul 07, 2020 09:30
[2020-07-07 12:00] VITALS: BP 139/81
--- NOTE | 2020-07-07 13:25 | NUR ---
SPO2 87% ON ROOM AIR WITH EXERTION. ADDED O2 @ 2 LPM. SPO2 STAYED ABOVE 90%. Addendum: 07/07/20 at 1325 by CHEIKH TEIXEIRA RT Amended: Links added.
--- NOTE | 2020-07-07 13:43 | NUR ---
CM/SS visited with the patient for discharge planning. Plan: Patient will discharge home with new home oxygen at 2L with exercise. Son will be the transportation. CM/SS contacted patient via phone. The patient states that she is feeling well today and is ready to go home. She states that she has been walking around the room without any assistance and does not have to use a walker or cane. She lives at home alone and does not need assistance at this time. DME: The patient verbalized she would like Dr. Kim, a family relation, to pick the durable medical equipment. CM/SS contact Dr. Kim. She reports that she would like [facility] in [place]. CM/SS contacted the agency and faxed a face sheet, H&P, home o2 study, and script. They will deliver to the hospital. No further needs at this time.
[2020-07-07] MEDS: REMDESIVIR INJ (NON-FORMULARY) 100 MG in NS (IVPB) 230 ML IV SCH (15:22)
== END 2020-07-07 17:03 | disposition home or self-care (01) | DRG 177 ==
LOC: EDUNIT# 22:28 → ER 22:30 → 4TH 07-04 00:45
PROVIDERS: ADMIT Internal Medicine; ATTEND Internal Medicine
PROC: XW033E5 Introduction of Remdesivir Anti-infective into Peripheral Vein, Percutaneous Approach, New Technology Group 5 (ICD-10-PCS; principal; 2020-07-04)
PROC: XW13325 Transfusion of Convalescent Plasma (Nonautologous) into Peripheral Vein, Percutaneous Approach, New Technology Group 5 (ICD-10-PCS; 2020-07-06)
DX: U07.1 COVID-19 (principal); J96.01 Acute respiratory failure with hypoxia; J12.89 Other viral pneumonia; Z68.1 Body mass index [BMI] 19.9 or less, adult; R63.6 Underweight; I10 Essential (primary) hypertension; D72.819 Decreased white blood cell count, unspecified; R73.9 Hyperglycemia, unspecified; R54 Age-related physical debility
CPT/HCPCS: 36415; 71045; 71275; 80053; 81000; 82550; 82553; 82728; 82962; 83036; 83605; 83735; 83874; 83880; 84145; 84484; 85025; 85379; 85610; 85652; 85730; 86141; 86900; 86901; 87040; 87077; 87088; 87186; 93005; 93041; 94761

== ENCOUNTER → 2020-09-25 | Outpatient (CLI) | payer MEDICARE, OTHER ==
[~2020-09-25] MED LIST: AMLO-251 PO; ASPI-999 PO; DEXA6TAB PO
== END ==
LOC: CARD 15:00
PROVIDERS: ATTEND Nurse Practitioner Family
DX: R60.0 Localized edema (principal); Z86.16 Personal history of COVID-19
CPT/HCPCS: 93306

== ENCOUNTER → 2022-01-02 | Outpatient (CLI) | payer OTHER, MEDICARE | LOC: LABNPT 18:10 | PROVIDERS: ATTEND Nurse Practitioner Family | DX: Z01.89 Encounter for other specified special examinations (principal) | CPT/HCPCS: 82550; 86141 ==

== ENCOUNTER → 2022-01-03 | Outpatient (CLI) | payer OTHER, MEDICARE ==
[2022-01-03 07:37] LABS: ALBUMIN 3.7 GM/DL (3.2-4.5); BILIRUBIN,TOTAL 0.5 MG/DL (0.1-1.0); CALCIUM 8.5 MG/DL (8.5-10.1); CREATININE SERUM 0.62 MG/DL (0.60-1.30); POTASSIUM 3.7 MMOL/L (3.6-5.0); TOTAL PROTEIN 5.7 GM/DL (6.4-8.2)
== END ==
LOC: LABNPT 06:58
PROVIDERS: ATTEND Internal Medicine
DX: Z01.89 Encounter for other specified special examinations (principal)
CPT/HCPCS: 80053; 82150; 83690; 86141